=== PATIENT | female | born 1955 | race Caucasian/White ===

== ENCOUNTER → 2017-10-13 | Outpatient (REF) | LOC: ZLAB.WCH 08:37 | DX: Z01.89 Encounter for other specified special examinations (principal) ==

== ENCOUNTER 2017-11-18 09:13 | Day surgery (SDC) | payer MEDICARE ==
[~2017-11-18] VITALS: Ht 167.6 cm; Wt 103.6 kg
[2017-11-18 10:04] VITALS: BP 115/82; PULSE 71; TEMP 98.7
[2017-11-18] MEDS ORDERED: PROAIR HFA0.09 MG/AC IH (10:10)
[2017-11-18] MEDS ORDERED: WELLBUTRIN SR150 M1 PO (10:11)
[2017-11-18] MEDS ORDERED: PACERONE200 MG PO (10:11)
[2017-11-18] MEDS ORDERED: HYGROTON 2525 MG/TAB PO (10:12)
[2017-11-18] MEDS ORDERED: PRADAXA 150MG150 MG PO (10:12)
[2017-11-18] MEDS ORDERED: ZESTRIL 20MG TA20 MG PO (10:13)
[2017-11-18] MEDS ORDERED: LEXAPRO 10MG10 MG PO (10:13)
[2017-11-18] MEDS ORDERED: CARDIZEM 60MG T60 MG PO (10:13)
[2017-11-18 11:50] VITALS: BP 88/54; PULSE 74; TEMP 97.4
[2017-11-18 12:05] VITALS: BP 94/66; PULSE 72
[2017-11-18 12:20] VITALS: BP 97/76; PULSE 71
[2017-11-18 12:35] VITALS: BP 93/72; PULSE 72
== END 2017-11-18 13:00 | disposition home or self-care (01) ==
LOC: SDCO 09:13
DX: K57.30 Diverticulosis of large intestine without perforation or abscess without bleeding (principal); R15.9 Full incontinence of feces; K52.9 Noninfective gastroenteritis and colitis, unspecified; I48.91 Unspecified atrial fibrillation; I10 Essential (primary) hypertension; J45.909 Unspecified asthma, uncomplicated; F32.9 Major depressive disorder, single episode, unspecified; E66.9 Obesity, unspecified; Z68.37 Body mass index [BMI] 37.0-37.9, adult; Z79.01 Long term (current) use of anticoagulants; Z86.010 Personal history of colon polyps; Z83.71 Family history of colonic polyps
CPT/HCPCS: OP; J2250; J2704; J3010; J7030

== ENCOUNTER → 2018-05-03 | Outpatient (REF) ==
[~2018-05-03] MED LIST: CARDIZEM 60MG T60 MG PO; HYGROTON 2525 MG/TAB PO; LEXAPRO 10MG10 MG PO; PACERONE200 MG PO; PRADAXA 150MG150 MG PO; PROAIR HFA0.09 MG/AC IH; WELLBUTRIN SR150 M1 PO; ZESTRIL 20MG TA20 MG PO
== END ==
LOC: ZLAB.WCH 18:17
DX: Z01.89 Encounter for other specified special examinations (principal)